=== PATIENT | male | born 1955 | race Caucasian/White ===

== ENCOUNTER 2017-12-29 16:46 | Emergency (ER) | payer BC ==
[2017-12-29 17:05] VITALS: BP 131/82
--- NOTE | 2017-12-29 18:11 | UC ---
Lula Bell Gabriel, scribed for Gen Villarreal MD on 12/29/17 at 1717 . Respiratory Complaint HPI - HPI Summary HPI Summary: This patient is a 62 year old M presenting to [facility] accompanied by his grandson with a chief complaint of a productive cough since a week ago. The patient rates the pain 0/10 in severity. Symptoms alleviated by nothing, pt has taken OTC medication with no relief. Patient reports nasal congestion and sinus pressure. Patient denies fever and ear pain. - History of Current Complaint Chief Complaint: UCRespiratory Stated Complaint: COUGH, AND CHEST CONGESTION Time Seen by Provider: 12/29/17 17:10 Hx Obtained From: Patient Onset/Duration: Still Present Timing: Constant Severity Initially: Mild Severity Currently: Moderate Pain Intensity: 0 Pain Scale Used: 0-10 Numeric Associated Signs And Symptoms: Positive: Nasal Congestion, Sinus Discomfort - Allergies/Home Medications Allergies/Adverse Reactions: Allergies Allergy/AdvReac Type Severity Reaction Status Date / Time Environmental Allergies Allergy Congestion Uncoded 12/29/17 17:05 PMH/Surg Hx/FS Hx/Imm Hx Other History Of: Negative For: HIV, Hepatitis B, Hepatitis C, Anticoagulant Therapy - Surgical History Surgical History: None Surgery Procedure, Year, and Place: LEFT WRIST ORIF AND THEN PLATE PLACEMENT. HERNIA REPAIR. TURP - Family History Known Family History: Negative: Diabetes, Seizure Disorder, Other - NO JOINT LAXITY - Social History Alcohol Use: None Substance Use Type: None Smoking Status (MU): Former Smoker When Did the Patient Quit Smoking/Using Tobacco: 25 yrs ago - Immunization History Most Recent Influenza Vaccination: 2017 Most Recent Pneumonia Vaccination: 2017 Review of Systems Constitutional: Negative - fever ENT: Nasal Discharge, Sinus Congestion, Sinus Pain/Tenderness Respiratory: Cough All Other Systems Reviewed And Are Negative: Yes Physical Exam Triage Information Reviewed: Yes Vital Signs: Initial Vital Signs Temp 98.1 F 12/29/17 17:02 Pulse 92 12/29/17 17:02 Resp 20 12/29/17 17:02 BP 131/82 12/29/17 17:02 Pulse Ox 96 12/29/17 17:02 Vital Signs Reviewed: Yes - Additional Comments General: well-appearing, no pain distress Skin: warm, color reflects adequate perfusion, dry Head: normal Eyes: EOMI, JOSE ENT: rhinorrhea Neck: supple, nontender Respiratory: CTA, breath sounds present Cardiovascular: RRR Abdomen: soft, nontender Bowel: present Musculoskeletal: normal, strength/ROM intact Neurological: normal, sensory/motor intact, A&O x3 UC Diagnostic Evaluation - Laboratory O2 Sat by Pulse Oximetry: 96 Respiratory Course/Dx - Course Course Of Treatment: BP noted and advised to follow up with PCP. SX 7-10 DAYS. - Differential Dx/Diagnosis Provider Diagnoses: SINUSITIS. elevated blood pressure without a history of HTN Discharge - Discharge Plan Condition: Stable Disposition: HOME Prescriptions: Amoxicillin/Clavulanate TAB* [Augmentin TAB 875*] 875 mg PO BID #20 tab Patient Education Materials: Sinusitis (ED) Referrals: Reina Bermudez MD [Primary Care Provider] - Additional Instructions: FOLLOW UP WITH YOUR DOCTOR. GET RECHECKED FOR ANY WORSENING OF YOUR CONDITION OR QUESTIONS OR CONCERNS. Your blood pressure was elevated during today's visit. Please follow up with your primary care provider in 1-2 weeks The documentation as recorded by the Lula smart Gabriel accurately reflects the service I personally performed and the decisions made by me, Gen Villarreal MD.
== END 2017-12-29 17:34 | disposition home or self-care (01) ==
LOC: UCEAST 16:46
DX: J32.9 Chronic sinusitis, unspecified (principal); R03.0 Elevated blood-pressure reading, without diagnosis of hypertension; Z87.891 Personal history of nicotine dependence
CPT/HCPCS: 99212; G0463

== ENCOUNTER 2018-03-08 11:59 | Emergency (ER) | payer BC ==
[2018-03-08 12:08] VITALS: BP 146/71
--- NOTE | 2018-03-08 12:24 | UC ---
Respiratory Complaint HPI - HPI Summary HPI Summary: pt started with fatigue 5 days ago, over next few days has developed bad cough and today he has been coughing up foul tasting green phlegm tried OTC cough/cold med with little relief - History of Current Complaint Chief Complaint: UCRespiratory Stated Complaint: CHEST CONGESTION Time Seen by Provider: 03/08/18 12:15 Hx Obtained From: Patient Onset/Duration: Gradual Onset Severity Initially: Mild Severity Currently: Moderate Pain Intensity: 5 Character: Cough: Productive Aggravating Factors: Nothing Alleviating Factors: Nothing Associated Signs And Symptoms: Positive: Nasal Congestion. Negative: Dyspnea, Fever, Wheezing, Hemoptysis - Allergies/Home Medications Allergies/Adverse Reactions: Allergies Allergy/AdvReac Type Severity Reaction Status Date / Time Environmental Allergies Allergy Congestion Uncoded 03/08/18 12:08 PMH/Surg Hx/FS Hx/Imm Hx Previously Healthy: Yes Endocrine History: Diabetes, Dyslipidemia Cardiovascular History: Hypertension GI/ History: Gastroesophageal Reflux Psychological History: Depression Other History Of: Negative For: HIV, Hepatitis B, Hepatitis C, Anticoagulant Therapy - Surgical History Surgical History: None Surgery Procedure, Year, and Place: LEFT WRIST ORIF AND THEN PLATE PLACEMENT. HERNIA REPAIR. TURP - Family History Known Family History: Positive: None Negative: Diabetes, Seizure Disorder, Other - NO JOINT LAXITY - Social History Occupation: Employed Full-time - computer office Lives: With Family Alcohol Use: None Substance Use Type: None Smoking Status (MU): Former Smoker When Did the Patient Quit Smoking/Using Tobacco: 25 yrs ago - Immunization History Most Recent Influenza Vaccination: 2017 Most Recent Pneumonia Vaccination: 2017 Review of Systems Constitutional: Fatigue Skin: Negative ENT: Nasal Discharge, Sinus Congestion Respiratory: Cough Cardiovascular: Negative Gastrointestinal: Negative Psychological: Negative All Other Systems Reviewed And Are Negative: Yes Physical Exam Triage Information Reviewed: Yes Appearance: Well-Appearing, Well-Nourished, Obese Vital Signs: Initial Vital Signs Temp 98.3 F 03/08/18 12:03 Pulse 91 03/08/18 12:03 Resp 20 03/08/18 12:03 BP 146/71 03/08/18 12:03 Pulse Ox 98 03/08/18 12:03 Vital Signs Reviewed: Yes Eyes: Positive: Conjunctiva Clear ENT: Positive: Pharynx normal, Nasal congestion. Negative: Sinus tenderness Neck exam: Normal Neck: Positive: Supple, Nontender, No Lymphadenopathy Respiratory: Positive: No respiratory distress, Rhonchi - l upper lung field Cardiovascular Exam: Normal Cardiovascular: Positive: RRR Musculoskeletal Exam: Normal Neurological Exam: Normal Neurological: Positive: Alert Psychological Exam: Normal Skin Exam: Normal Diagnostic Evaluation - Laboratory O2 Sat by Pulse Oximetry: 98 Respiratory Course/Dx - Differential Dx/Diagnosis Differential Diagnosis/HQI/PQRI: Bronchitis, Influenza, Lower Resp Infection, Sinusitis Provider Diagnoses: acute bronchitis Discharge - Sign-Out/Discharge Documenting (check all that apply): Discharge/Admit/Transfer - Discharge Plan Condition: Good Disposition: HOME Prescriptions: Azithromyxin BRYAN (NF) [Z-Bryan (Zithromax) 250 mg tabs #6] 2 tab PO .TODAY, THEN 1 DAILY #6 tab Patient Education Materials: Acute Bronchitis (ED) Referrals: Reina Bermudez MD [Primary Care Provider] - 3 Days (If no better) Additional Instructions: drink plenty of fluids use over the counter cold and cough medication as directed start zithromax and take as prescribed - Billing Disposition and Condition Condition: GOOD Disposition: HOME
== END 2018-03-08 13:06 | disposition home or self-care (01) ==
LOC: UCEAST 11:59
DX: J20.9 Acute bronchitis, unspecified (principal); E11.9 Type 2 diabetes mellitus without complications; Z79.84 Long term (current) use of oral hypoglycemic drugs; E78.5 Hyperlipidemia, unspecified; I10 Essential (primary) hypertension; K21.9 Gastro-esophageal reflux disease without esophagitis; F32.9 Major depressive disorder, single episode, unspecified; Z87.891 Personal history of nicotine dependence
CPT/HCPCS: 99212; G0463

== ENCOUNTER 2018-03-19 09:19 | Emergency (ER) | payer MEDICARE, BC, OTHER ==
[2018-03-19 09:32] VITALS: BP 140/74
--- NOTE | 2018-03-19 09:54 | RAD ---
INDICATION: Right hand injury COMPARISON: None TECHNIQUE: AP, lateral, and oblique views were obtained. FINDINGS: There are no acute bony findings. There is old deformity of the fifth metacarpal consistent with remote fracture. The carpals articulate normally. There is soft tissue swelling about the ulnar aspect of the wrist. IMPRESSION: SOFT TISSUE SWELLING. NO ACUTE FRACTURE.
--- NOTE | 2018-03-19 09:59 | RAD ---
INDICATION: Right wrist injury COMPARISON: None TECHNIQUE: AP, lateral, and oblique views were obtained. FINDINGS: There is no acute fracture or dislocation. There is soft tissue swelling along the ulnar aspect of the wrist. IMPRESSION: SOFT TISSUE SWELLING. NO ACUTE FRACTURE
--- NOTE | 2018-03-19 15:36 | UC ---
Poli Bell Nikita, scribed for Epifanio Machado MD on 03/19/18 at 0926 . Hand/Wrist HPI - HPI Summary HPI Summary: This patient is a 63 year old M presenting to [facility] with a chief complaint of R wrist pain since earlier today. The patient was filling up a bird feeder when he got off balance and smacked his hand against something and has been having pain since. The patient rates the pain 4/10 in severity. Symptoms aggravated by nothing. Symptoms alleviated by nothing. - History Of Current Complaint Stated Complaint: WRIST INJURY Time Seen by Provider: 03/19/18 09:22 Hx Obtained From: Patient Onset/Duration: Sudden Onset, Lasting Hours, Still Present Severity Initially: Mild Severity Currently: Mild Pain Intensity: 4 Pain Scale Used: 0-10 Numeric Aggravating Factor(s): Other - nothing Alleviating Factor(s): Nothing - Allergies/Home Medications Allergies/Adverse Reactions: Allergies Allergy/AdvReac Type Severity Reaction Status Date / Time Environmental Allergies Allergy Congestion Uncoded 03/19/18 09:29 PMH/Surg Hx/FS Hx/Imm Hx Endocrine History: Diabetes Cardiovascular History: Other Other Cardiovascular History: No CAD, HTN Respiratory History: Asthma, Pneumonia GI/ History: Gastroesophageal Reflux Psychological History: Anxiety, Depression Other History Of: Negative For: HIV, Hepatitis B, Hepatitis C, Anticoagulant Therapy - Surgical History Surgical History: None Surgery Procedure, Year, and Place: LEFT WRIST ORIF AND THEN PLATE PLACEMENT. HERNIA REPAIR. TURP - Family History Known Family History: Negative: Diabetes, Seizure Disorder, Other - NO JOINT LAXITY - Social History Alcohol Use: None Substance Use Type: None Smoking Status (MU): Former Smoker When Did the Patient Quit Smoking/Using Tobacco: 25 yrs ago - Immunization History Most Recent Influenza Vaccination: 2017 Most Recent Pneumonia Vaccination: 2017 Review of Systems Constitutional: Other - denies fever Musculoskeletal: Other: - R wrist pain All Other Systems Reviewed And Are Negative: Yes Physical Exam - Summary Physical Exam Summary: VITAL SIGNS: Reviewed. GENERAL: ~Patient is a well-developed and nourished MALE who is lying comfortable in the stretcher. ~Patient is not in any acute respiratory distress. HEAD AND FACE: Normocephalic EYES: PERRLA, EOMI x 2. EARS: Hearing grossly intact. MOUTH: Oropharynx within normal limits. NECK: Supple, trachea is midline, no adenopathy, no JVD, no carotid bruit. CHEST: Symmetric, no tenderness at palpation LUNGS: Clear to auscultation bilaterally. No wheezing or crackles. CVS: Regular rate and rhythm, S1 and S2 present, no murmurs or gallops appreciated. ABDOMEN: Soft, non-tender. Bowel sounds are normal. No abdominal abnormal pulsations. EXTREMITIES: Full ROM in all major joints, no edema, no cyanosis or clubbing. Swelling on lateral aspect of R wrist and is tender at palpation. NEURO: Alert and oriented x 3. No acute neurological deficits. Speech is normal and follows commands. SKIN: Dry and warm Triage Information Reviewed: Yes Vital Signs Reviewed: Yes Diagnostics - Radiology R hand XR Radiology Interpretation Completed By: Radiologist - SOFT TISSUE SWELLING. NO ACUTE FRACTURE. [facility] physician has reviewed this radiology report. R wrist XR Radiology Interpretation Completed By: Radiologist - SOFT TISSUE SWELLING. NO ACUTE FRACTURE. [facility] physician has reviewed this radiology report. Re-Evaluation - Re-Evaluation First Eval Re-Evaluation Time: 10:19 Comment: Discussed results and discharge plan with the patient. Hand/Wrist Course/Dx - Course Course Of Treatment: This patient is a 63 year old M presenting to [facility] with a chief complaint of R wrist pain since earlier today. R hand XR reveals SOFT TISSUE SWELLING. NO ACUTE FRACTURE. R wrist XR reveals SOFT TISSUE SWELLING. NO ACUTE FRACTURE. The pt is hemodynamically stable, alert and oriented x3. I discussed all the findings and test results with the patient. The patient will be discharged with instructions to follow up with their PCP. Patient was instructed to return to the urgent care or go to ER immediately if any of the symptoms return or worsens. Plan of care was discussed with the patient, and patient understands and agrees. All questions were answered to patient satisfaction. There were no further complaints or concerns. - Differential Dx/Diagnosis Provider Diagnoses: wrist pain Discharge - Sign-Out/Discharge Documenting (check all that apply): Discharge/Admit/Transfer - Discharge Plan Condition: Stable Disposition: HOME Patient Education Materials: Wrist Injury (ED), Contusion in Adults (ED), Arthralgia (ED) Referrals: Reina Bermudez MD [Primary Care Provider] - Additional Instructions: Take medications as instructed Increase your fluid intake Return to the if symptoms worsen The documentation as recorded by the scribe, Poli,Chandra accurately reflects the service I personally performed and the decisions made by me, Epifanio Machado MD.
== END 2018-03-19 10:25 | disposition home or self-care (01) ==
LOC: UCEAST 09:19
DX: M25.531 Pain in right wrist (principal); E11.9 Type 2 diabetes mellitus without complications; Z79.84 Long term (current) use of oral hypoglycemic drugs; J45.909 Unspecified asthma, uncomplicated; K21.9 Gastro-esophageal reflux disease without esophagitis; F41.9 Anxiety disorder, unspecified; F32.9 Major depressive disorder, single episode, unspecified; Z87.891 Personal history of nicotine dependence
CPT/HCPCS: 99211; G0463

== ENCOUNTER 2018-11-01 20:36 | Emergency (ER) | payer MEDICARE, BC ==
[2018-11-01 20:43] VITALS: BP 140/82
--- NOTE | 2018-11-01 20:58 | UC ---
Respiratory Complaint HPI - HPI Summary HPI Summary: cough sore throat and ear congestion for a few days-no days--no fevers- - History of Current Complaint Chief Complaint: UCRespiratory Stated Complaint: SORE THROAT, AND EAR ACHE Time Seen by Provider: 11/01/18 20:56 Hx Obtained From: Patient Onset/Duration: Sudden Onset, Lasting Days - 3 Timing: Constant Pain Intensity: 4 Pain Scale Used: 0-10 Numeric Character: Cough: Nonproductive Aggravating Factors: Nothing Alleviating Factors: Nothing Associated Signs And Symptoms: Positive: URI, Nasal Congestion - Allergies/Home Medications Allergies/Adverse Reactions: Allergies Allergy/AdvReac Type Severity Reaction Status Date / Time Environmental Allergies Allergy Congestion Uncoded 11/01/18 20:43 PMH/Surg Hx/FS Hx/Imm Hx Previously Healthy: No Endocrine History: Dyslipidemia Respiratory History: Asthma GI/ History: Gastroesophageal Reflux Psychological History: Anxiety Other History Of: Negative For: HIV, Hepatitis B, Hepatitis C, Anticoagulant Therapy - Surgical History Surgical History: Yes Surgery Procedure, Year, and Place: LEFT WRIST ORIF AND THEN PLATE PLACEMENT. HERNIA REPAIR. TURP - Family History Known Family History: Positive: None Negative: Diabetes, Seizure Disorder, Other - NO JOINT LAXITY - Social History Occupation: Employed Full-time Lives: With Family Alcohol Use: None Substance Use Type: None Smoking Status (MU): Former Smoker When Did the Patient Quit Smoking/Using Tobacco: 25 yrs ago - Immunization History Most Recent Influenza Vaccination: 2016 Most Recent Pneumonia Vaccination: 2017 Review of Systems All Other Systems Reviewed And Are Negative: Yes Constitutional: Positive: Negative Skin: Positive: Negative Eyes: Positive: Negative ENT: Positive: Sore Throat, Ear Ache, Sinus Congestion Respiratory: Positive: Cough Cardiovascular: Positive: Negative Gastrointestinal: Positive: Negative Genitourinary: Positive: Negative Motor: Positive: Negative Neurovascular: Positive: Negative Musculoskeletal: Positive: Negative Neurological: Positive: Negative Psychological: Positive: Negative Is Patient Immunocompromised?: No Physical Exam Triage Information Reviewed: Yes Appearance: Well-Appearing, No Pain Distress, Well-Nourished Vital Signs: Initial Vital Signs Temp 98.2 F 11/01/18 20:41 Pulse 92 11/01/18 20:41 Resp 18 11/01/18 20:41 BP 140/82 11/01/18 20:41 Pulse Ox 98 11/01/18 20:41 Vital Signs Reviewed: Yes Eye Exam: Normal Eyes: Positive: Conjunctiva Clear ENT Exam: Normal ENT: Positive: Normal ENT inspection, Hearing grossly normal, Pharynx normal, Nasal congestion, Sinus tenderness, Uvula midline. Negative: TMs normal, Tonsillar swelling, Tonsillar exudate, Trismus, Muffled voice, Hoarse voice, Dental tenderness Dental Exam: Normal Neck exam: Normal Neck: Positive: Supple, Nontender, No Lymphadenopathy Respiratory Exam: Normal Respiratory: Positive: Chest non-tender, Lungs clear, Normal breath sounds, No respiratory distress, No accessory muscle use Cardiovascular Exam: Normal Cardiovascular: Positive: RRR, No Murmur, Pulses Normal, Brisk Capillary Refill Musculoskeletal Exam: Normal Musculoskeletal: Positive: Strength Intact, ROM Intact, No Edema Neurological Exam: Normal Neurological: Positive: Alert, Muscle Tone Normal Psychological Exam: Normal Skin Exam: Normal UC Diagnostic Evaluation - Laboratory O2 Sat by Pulse Oximetry: 98 Diagnostic Studies Comment: rapid strep (-) Respiratory Course/Dx - Course Course Of Treatment: tylenol, ibuprofen increase fluids follow with pcp - Differential Dx/Diagnosis Provider Diagnosis: Viral illness, Sore throat (viral) Discharge - Sign-Out/Discharge Documenting (check all that apply): Patient Departure All imaging exams completed and their final reports reviewed: No Studies - Discharge Plan Condition: Stable Disposition: HOME Patient Education Materials: Pharyngitis (ED), Viral Syndrome (ED), Hypertension (ED) Referrals: Reina Bermudez MD [Primary Care Provider] - 2 Weeks - Billing Disposition and Condition Condition: STABLE Disposition: Home
== END 2018-11-01 21:35 | disposition home or self-care (01) ==
LOC: UCEAST 20:36
DX: B34.9 Viral infection, unspecified (principal); J02.9 Acute pharyngitis, unspecified; Z87.891 Personal history of nicotine dependence
CPT/HCPCS: 87651; 99211; G0463

== ENCOUNTER 2018-11-13 15:07 | Emergency (ER) | payer MEDICARE, BC ==
[2018-11-13 15:27] VITALS: BP 142/81
--- NOTE | 2018-11-13 15:49 | UC ---
Throat Pain/Nasal Dong HPI - HPI Summary HPI Summary: 63 yo male presents with sinus pain/pressure/congestion for the last 1.5 weeks. He tells me that he has a history of chronic sinus infections and gets allergy shots for these - has not had a sinus infection in a long time. His symptoms began 1.5 weeks ago and he has been taking OTC cold medicine, nasal sprays, and mucinex with no relief. Denies fever, chills, sore throat, cough. - History of Current Complaint Chief Complaint: UCRespiratory Stated Complaint: CONGESTED,COUGH Time Seen by Provider: 11/13/18 15:49 Hx Obtained From: Patient Onset/Duration: Gradual Onset Pain Intensity: 0 - Allergies/Home Medications Allergies/Adverse Reactions: Allergies Allergy/AdvReac Type Severity Reaction Status Date / Time Environmental Allergies Allergy Congestion Uncoded 11/13/18 15:26 Home Medications: Home Medications Mometasone 110 MCG MDI * [Asmanex 110 MCG MDI *] 11/13/18 [History] PMH/Surg Hx/FS Hx/Imm Hx Respiratory History: Asthma Other History Of: Negative For: HIV, Hepatitis B, Hepatitis C, Anticoagulant Therapy - Surgical History Surgical History: Yes Surgery Procedure, Year, and Place: LEFT WRIST ORIF AND THEN PLATE PLACEMENT. HERNIA REPAIR. TURP - Family History Known Family History: Positive: None Negative: Diabetes, Seizure Disorder, Other - NO JOINT LAXITY - Social History Lives: With Family Alcohol Use: None Substance Use Type: None Smoking Status (MU): Former Smoker When Did the Patient Quit Smoking/Using Tobacco: 25 yrs ago - Immunization History Most Recent Influenza Vaccination: 2017 Most Recent Pneumonia Vaccination: 2017 Review of Systems All Other Systems Reviewed And Are Negative: Yes Constitutional: Positive: Negative Skin: Positive: Negative Eyes: Positive: Negative ENT: Positive: Nasal Discharge, Sinus Congestion, Sinus Pain/Tenderness Respiratory: Positive: Negative Cardiovascular: Positive: Negative Neurological: Positive: Negative Psychological: Positive: Negative Physical Exam - Summary Physical Exam Summary: GENERAL: NAD. WDWN. No pain distress. SKIN: No rashes, sores, lesions, or open wounds. HEENT: Head: AT/NC Eyes: EOM intact. Conjunctiva clear without inflammation or discharge. Ears: Hearing grossly normal. TMs intact, no bulging, erythema, or edema. Nose: Nasal mucosa mildly swollen. No erythema and without discharge. TTP maxillary and frontal sinus. Positive post nasal drip Throat: Posterior oropharynx without exudates, erythema, or tonsillar enlargement. Uvula midline. NECK: Supple. Nontender. No lymphadenopathy. CHEST: CTAB. No r/r/w. No accessory muscle use. Breathing comfortably and in no distress. CV: RRR. Without m/r/g. Pulses intact. NEURO: Alert. PSYCH: Age appropriate behavior. Triage Information Reviewed: Yes Vital Signs: Initial Vital Signs Temp 97.1 F 11/13/18 15:23 Pulse 94 11/13/18 15:23 Resp 16 11/13/18 15:23 BP 142/81 11/13/18 15:23 Pulse Ox 96 11/13/18 15:23 Vital Signs Reviewed: Yes Throat Pain/Nasal Course/Dx - Course Course Of Treatment: Sinusitis - pt says zpak works well for him - Differential Dx/Diagnosis Provider Diagnosis: Sinusitis Discharge - Sign-Out/Discharge Documenting (check all that apply): Patient Departure All imaging exams completed and their final reports reviewed: No Studies - Discharge Plan Condition: Stable Disposition: HOME Prescriptions: Azithromycin TAB* [Zithromax TAB (Z-BRYAN) 250 mg #6 tabs] 2 tab PO .TODAY, THEN 1 DAILY #1 bryan Patient Education Materials: Sinusitis (ED) Referrals: Reina Bermudez MD [Primary Care Provider] - Additional Instructions: If you develop a fever, shortness of breath, chest pain, new or worsening symptoms - please call your PCP or go to the ED. Your blood pressure was high at todays visit. Please see your primary provider within 4 weeks for recheck and re-evaluation. - Billing Disposition and Condition Condition: STABLE Disposition: Home
== END 2018-11-13 16:01 | disposition home or self-care (01) ==
LOC: UCEAST 15:07
DX: J32.9 Chronic sinusitis, unspecified (principal); J45.909 Unspecified asthma, uncomplicated; Z91.09 Other allergy status, other than to drugs and biological substances; Z87.891 Personal history of nicotine dependence
CPT/HCPCS: 99212; G0463

== ENCOUNTER 2019-05-21 07:47 | Day surgery (SDC) | payer MEDICARE, BC ==
--- NOTE | 2019-05-07 07:36 | HP ---
PREOPERATIVE HISTORY AND PHYSICAL: DATE OF SURGERY/ADMISSION: 05/21/19 DATE OF OFFICE VISIT/ENCOUNTER: 05/05/19 ATTENDING SURGEON: Jenna Segovia MD * (DICTATED BY NICOLE AMBROSE) PROCEDURE: Right ring finger trigger finger release. HISTORY OF PRESENT ILLNESS: This is a 64-year-old male who has had triggering in his right ring finger for several months. He has received 2 cortisone injections over time, but the problem recurs. He would like a more permanent solution to the triggering at this time and has consented to proceed with surgical intervention. PAST MEDICAL HISTORY: 1. Diabetes. 2. GERD. 3. Depression/anxiety. 4. Hypertension. 5. Seasonal allergies. PAST SURGICAL HISTORY: 1. Hernia repair. 2. Left arm ORIF. 3. TURP. CURRENT MEDICATIONS: 1. Asmanex. 2. Aspirin 81 mg daily. 3. Atorvastatin calcium 20 mg daily. 4. Esomeprazole magnesium 40 mg daily. 5. Fluoxetine HCl 20 mg daily. 6. Levocetirizine dihydrochloride 5 mg daily. 7. Lisinopril 10 mg daily. 8. Metformin HCl ER 500 mg daily. 9. Multivitamin daily. ALLERGIES: No known drug allergies. FAMILY MEDICAL HISTORY: Noncontributory. 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 He is a former smoker, he quit about 30 years ago. Prior to that, he smoked for 20 years a pack per day. He denies recreational drug use and does not drink alcohol. REVIEW OF SYSTEMS: Negative for general, cephalic, cardiovascular, respiratory , GI, , other musculoskeletal, integumentary, endocrine, neurologic and hematologic symptoms. Infectious Disease: Negative for MRSA, hepatitis C, HIV. PHYSICAL EXAMINATION GENERAL: Well-developed, well-nourished 64-year-old male in no acute distress. VITAL SIGNS: Height 6 feet tall, weight 272 pounds. pulse rate 76, blood pressure 132/64. HEENT: Normocephalic, atraumatic. Pupils are equal, round, and reactive to light and accommodation. Extraocular movements are intact. Throat is clear. NECK: Supple. No palpable lymph nodes. PULMONARY: Lungs are clear to auscultation bilaterally. No wheezes, rales, or rhonchi. CARDIOVASCULAR: Regular rate and rhythm. S1, S2. No murmurs, rubs, or gallops. No edema. ABDOMEN: Positive bowel sounds, soft, nontender. NEUROLOGICAL: Alert and oriented x3. Cranial nerves II through XII are intact. Sensation is intact to light touch. MUSCULOSKELETAL: On inspection of his right hand, there is no visible swelling. Skin is intact. He has tenderness to palpation at the A1 liane of the right ring finger and difficulty fully flexing the finger. Neurovascular function is intact. IMPRESSION: Right ring trigger finger. PLAN: The patient is scheduled to undergo a right ring finger trigger finger release with Dr. Segovia on 05/21/19. He will return to the office 10 days postop for followup and suture removal. A prescription for Tylenol No. 3 was e- scribed to the patient's pharmacy for postoperative pain management. NICOLE AMBROSE [id number] #: [id number] JAVON
[~2019-05-21 07:47] MED LIST: Buffered Lidocaine 1% SYRIN* 1 ML/SYRINGE INTRADERM ONE; Lactated Ringers 1000 ML Bag* 1,000 ML IV SCH; Lidocaine 1% INJ* 10 MG/ML 30 ML SDV ONE
[2019-05-21] MEDS ORDERED: Naloxone* 0.4 MG/ML 1 ML VIAL IV PRN (08:58)
[2019-05-21] MEDS ORDERED: Propofol* 10 MG/ML 20 ML BTL ONE (09:00)
[2019-05-21] MEDS ORDERED: Lidocaine 2% PF * 5 ML VIAL ONE (09:00)
[2019-05-21 10:14] VITALS: BP 131/82
--- NOTE | 2019-05-21 10:41 | OP ---
DATE OF OPERATION: 05/21/19 [facility] DATE OF : 51 SURGEON: Jenna Segovia MD. PARKING ASSISTANT: NICOLE Ackerman. ANESTHESIA: Local MAC. PRE-OP DIAGNOSIS: Right ring finger trigger finger. POST-OP DIAGNOSIS: Right ring finger trigger finger. OPERATIVE PROCEDURE: Right ring finger trigger release. ESTIMATED BLOOD LOSS: Zero. TOURNIQUET TIME: About 10 minutes. INDICATION FOR PROCEDURE: Blaine is an 64-year-old male who has triggering and locking of his right ring finger. He presents for trigger finger release. DESCRIPTION OF PROCEDURE: The patient was brought to the operating room and was given a sedation anesthetic and local anesthetic with 1% plain lidocaine in the palm of his right hand. The skin of his right hand and forearm was prepped and draped in the usual sterile fashion. The hand and forearm were exsanguinated and the tourniquet elevated to 250 mmHg. A transverse incision was made centered over the right ring finger A1 liane. We dissected through the subcutaneous tissue. The digital neurovascular bundles were retracted by the surgical garment fitter, Vaishali Jimenez. The A1 liane was incised longitudinally completely releasing the flexion tendons, which were in good condition. The wound was irrigated and the skin edges were reapproximated with 4-0 nylon suture. The wound was dressed with Xeroform, 4x4, Webril and an Clemente wrap. The patient tolerated the procedure well and was brought to the recovery room in good condition. [id number]/CPS #: [id number] MTDD
== END 2019-05-21 09:58 | disposition home or self-care (01) ==
LOC: OREAST 07:47
PROVIDERS: ATTEND Orthopaedic Surgery
DX: M65.341 Trigger finger, right ring finger (principal); E11.9 Type 2 diabetes mellitus without complications; Z79.84 Long term (current) use of oral hypoglycemic drugs; K21.9 Gastro-esophageal reflux disease without esophagitis; F41.8 Other specified anxiety disorders; I10 Essential (primary) hypertension; Z87.891 Personal history of nicotine dependence; J45.909 Unspecified asthma, uncomplicated
CPT/HCPCS: J2704

== ENCOUNTER 2019-12-04 16:11 | Emergency (ER) | payer MEDICARE, BC ==
--- OUTSIDE RECORDS SUMMARY | 2019-12-04 16:17 | XMS REPORT | Summary of Care ---
:1955 Author Organization [facility] Address [address] [facility] [place] [address] Care Team Providers Name Role Phone Reina Bermudez MD Primary Care Provider Venancio Wheat Unavailable Concha Gracia MD Unavailable Danilo Caro MD Unavailable Jagdeep Baltazar MD Primary Journeyman Lineman/Sample Driller Reason for Visit Reason Comments Other pt presents for painful left middle finger. Is red around tip. Noticed about friday. Encounter Details Date Type Department Care Team Description 11/17/2019 Office Visit [facility] Jaison Michael MD Paronychia of finger, Practice [address] left (Primary Dx) [address] [place] [address] [place] [address] [phone] Allergies No Known Allergiesdocumented as of this encounter (statuses as of 11/17/2019) Medications Medication Sig Dispensed Refills Start Date End Date Status Aspirin 81 MG Oral Tab Take 1 Tab by 0 Active mouth DAILY. Levocetirizine Take 1 Tab by 0 Active Dihydrochloride (XYZAL) mouth DAILY. 5 MG Oral Tab albuterol HFA (VENTOLIN Take 2 Puffs by 1 Inhaler 5 04/10/2017 Active HFA) 108 (90 BASE) inhalation EVERY MCG/ACT Inhalation Aero FOUR HOURS Soln NEEDED (sob). Lancets Does not apply by Does not apply 100 Each 5 04/25/2017 Active MiscIndications: route Diabetes mellitus DIRECTED. Insulin without complication dependent (HCC) diabetes. Brand: insurance preferred Glucose Blood In Vitro 1 Strip by In 50 Strip 11 04/25/2017 Active StripIndications: Vitro route Diabetes mellitus DAILY. contolled without complication non-insulin (HCC) dependent diabetes ASMANEX 60 METERED inhale 2 puffs by 1 Each 5 01/28/2019 Active DOSES 220 MCG/INH mouth once daily Inhalation AEROSOL POWDER, BREATH ACTIVATED esomeprazole magnesium take 1 capsule by 90 Cap 1 05/11/2019 Active (NEXIUM) 40 MG Oral mouth once daily CAPSULE DELAYED RELEASEIndications: Gastroesophageal reflux disease without esophagitis glimepiride (AMARYL) 2 Take 1 Tab by 30 Tab 5 07/09/2019 Active MG Oral TabIndications: mouth EVERY Diabetes mellitus MORNING. without complication (HCC) lisinopril (PRINIVIL, take 1 tablet by 90 Tab 1 08/03/2019 Active ZESTRIL) 10 MG Oral mouth once daily TabIndications: Essential hypertension atorvastatin (LIPITOR) take 1 tablet by 90 Tab 1 08/24/2019 Active 20 MG Oral mouth once daily TabIndications: Mixed hyperlipidemia metFORMIN HCL 750 MG TAKE 2 TABLETS BY 180 Tab 0 09/21/2019 Active Oral TABLET SR 24 MOUTH ONCE DAILY HRIndications: Diabetes mellitus without complication (HCC) fluoxetine (PROZAC) 20 TAKE 1 CAPSULE BY 90 Cap 0 09/21/2019 Active MG Oral CapIndications: MOUTH ONCE DAILY Generalized anxiety disorder doxycycline Take 100 mg by 20 Tab 0 11/17/2019 Active (VIBRAMYCIN) 100 MG mouth TWICE Oral Tab DAILY. 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 Set realistic goal of 1# wt reduction /week set 10 week goals. Chronic rhinitis 04/09/2012 GERD (gastroesophageal reflux disease) 04/09/2012 Generalized anxiety disorder 04/09/2012 documented as of this encounter (statuses as of 11/17/2019) Immunizations Name Administration Dates Next Due Influenza (IM) Preservative Free 09/04/2017, 08/20/2015, 07/25/2014 Influenza Vaccine 65 Yrs + 11/05/2019 Influenza Vaccine High Dose 08/03/2018 Influenza Vaccine Whole 08/05/2016, 08/29/2013 PNEUMOCOCCAL POLYSACCHARIDE VACCINE 09/04/2016 Pneumococcal Conjugate Vaccine 09/04/2017 TETANUS & DIPHTHERIA TOXOID (OVER 7 YRS) 11/10/2011 ZOSTER (SHINGRIX) VACCINE 09/30/2019 ZOSTER (ZOSTAVAX) VACCINE 10/07/2014 documented as of this encounter Social History Tobacco Use Types Packs/Day Years Used Date Former Smoker Cigarettes 1.5 25 Quit: 1993 Smokeless Tobacco: Never Used Comments: Alcohol Use Drinks/Week oz/Week Comments Yes rare Sex Assigned at Date Recorded Not on file Job Start Date Occupation Industry Not on file Not on file Not on file Travel History Travel Start Travel End No recent travel history available. documented as of this encounter Last Filed Vital Signs Vital Sign Reading Time Taken Comments Blood Pressure 112/68 11/17/2019 1:08 PM EST Pulse 86 11/17/2019 1:08 PM EST Temperature 37.1 11/17/2019 1:08 PM C (98.8 EST F) Respiratory Rate - - Oxygen Saturation 96% 11/17/2019 1:08 PM EST Inhaled Oxygen Concentration - - Weight 125.6 kg (276 lb 14.4 oz) 11/17/2019 1:08 PM EST Height 177.8 cm (5' 10") 11/17/2019 1:08 PM EST Body Mass Index 39.73 11/17/2019 1:08 PM EST documented in this encounter Progress Notes Jaison Michael MD - 11/17/2019 1:00 PM EST PATIENT: Blaine Daniels : 1955 DATE OF SERVICE: 11/17/2019 CHIEF COMPLAINT: Chief Complaint Patient presents with Other pt presents for painful left middle finger. Is red around tip. Noticed about friday. Subjective HISTORY OF PRESENT ILLNESS: Blaine Daniels is a 64-y.o. male. Right handed with left 3rd finger with redness , pain, but no purulence x 3 days. No injury but bites nails . Has had something similar in the past a few times but self resolves in a couple days without this much pain . Past Medical History: Diagnosis Date Adenomatous colon polyp 07/2017 Anxiety Asthma, moderate persistent Dr Wheat BPH sees Dr. Caro. Chronic rhinitis 04/09/2012 Colles' fracture L repaired 2003 Depression Diabetes mellitus without complication (HCC) 04/25/2017 Dysplastic nevi Essential hypertension 04/25/2017 GERD (gastroesophageal reflux disease) Hypersomnia 07/31/[address] Wheat: Bilateral lung nodules. Secondary to old granulomatous disease. Problems with hearing decreased right ear Reflux esophagitis Vocal cord polyp removed 1999 Family History Problem Relation Age of Onset Alcohol/Drug Father etoh Heart Father No Known Problems Sister No Known Problems Sister No Known Problems Brother No Known Problems Child No Known Problems Child Alcohol/Drug Mother etoh Pulmonary Mother COPD Cancer Paternal Grandfather Hypertension Paternal Grandfather No Known Problems Grandchild No Known Problems Grandchild Current Outpatient Medications Medication Sig albuterol HFA (VENTOLIN HFA) 108 (90 BASE) MCG/ACT Inhalation Aero Soln Take 2 Puffs by inhalation EVERY FOUR HOURS NEEDED (sob). ASMANEX 60 METERED DOSES 220 MCG/INH Inhalation AEROSOL POWDER, BREATH ACTIVATED inhale 2 puffs by mouth once daily Aspirin 81 MG Oral Tab Take 1 Tab by mouth DAILY. atorvastatin (LIPITOR) 20 MG Oral Tab take 1 tablet by mouth once daily esomeprazole magnesium (NEXIUM) 40 MG Oral CAPSULE DELAYED RELEASE take 1 capsule by mouth once daily fluoxetine (PROZAC) 20 MG Oral Cap TAKE 1 CAPSULE BY MOUTH ONCE DAILY glimepiride (AMARYL) 2 MG Oral Tab Take 1 Tab by mouth EVERY MORNING. Glucose Blood In Vitro Strip 1 Strip by In Vitro route DAILY. contolled non-insulin dependentdiabetes Lancets Does not apply Misc by Does not apply route DIRECTED. Insulin dependent diabetes. Brand: insurance preferred Levocetirizine Dihydrochloride (XYZAL) 5 MG Oral Tab Take 1 Tab by mouth DAILY. lisinopril (PRINIVIL, ZESTRIL) 10 MG Oral Tab take 1 tablet by mouth once daily metFORMIN HCL 750 MG Oral TABLET SR 24 HR TAKE 2 TABLETS BY MOUTH ONCE DAILY No current facility-administered medications for this visit. No Known Allergies Social History Socioeconomic History Marital status: Spouse name: Not on file Number of children: Not on file Years of education: Not on file Highest education level: Not on file Occupational History Not on file Social Needs Financial resource strain: Not on file Food insecurity Worry: Not on file Inability: Not on file Transportation needs Medical: Not on file Non-medical: Not on file Tobacco Use Smoking status: Former Smoker Packs/day: 1.50 Years: 25.00 Pack years: 37.50 Types: Cigarettes Last attempt to quit: 1993 Years since quittin.0 Smokeless tobacco: Never Used Tobacco comment: Substance and Sexual Activity Alcohol use: Yes Comment: rare Drug use: No Sexual activity: Yes Partners: Female Lifestyle Physical activity Days per week: Not on file Minutes per session: Not on file Stress: Not on file Relationships Social connections Talks on phone: Not on file Gets together: Not on file Attends pentecostal service: Not on file Active member of club or organization: Not on file Attends meetings of clubs or organizations: Not on file Relationship status: Not on file Intimate partner violence Fear of current or ex partner: Not on file Emotionally abused: Not on file Physically abused: Not on file Forced sexual activity: Not on file Other Topics Concern Back Care Not Asked Bike Helmet Not Asked Blood Transfusions No Caffeine Concern Not Asked Exercise Yes Comment: walking ~1 mile q2days Hobby Hazards Not Asked International Travel Yes Comment: [facility] Service No Occupational Exposure No Seat Belt Yes Self-Exams Not Asked Sleep Concern No Special Diet Yes Comment: low fat Stress Concern No Weight Concern Yes Social History Narrative 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 3 cats. [employer] computer security REVIEW OF SYSTEMS: ROS Objective PHYSICAL EXAM: VITALS: BP 112/68 (BP Location: Left arm, Patient Position: Sitting) | Pulse 86 | Temp 98.8 F(37.1 C) | Ht 5' 10" (1.778 m) | Wt 276 lb 14.4 oz ( 125.6 kg) | SpO2 96% | BMI 39.73 kg/m Body mass index is 39.73 kg/m. Physical Exam Vitals signs reviewed. Constitutional: Appearance: He is not ill-appearing. Cardiovascular: Rate and Rhythm: Normal rate and regular rhythm. Pulmonary: Effort: Pulmonary effort is normal. Breath sounds: Normal breath sounds. Skin: Comments: Tip of 3rd digit is red swollen and tender. There is a small white are consistent withpurulence noted adjacent to the nail Psychiatric: Mood and Affect: Mood normal. ASSESSMENT / IMPRESSION: ICD-9-CM ICD-10-CM 1. Paronychia of finger, left 681.02 L03.012 INCISION AND DRAINAGE OF ABSCESS SIMPLE Plan Procedure Procedure explain including risks and benefits. Risk include infection and bleeding. Patient consent to the procedure. After time out Betadine placed. Small incision adjacent to the nail released small amount purulent material Clean and dress Give doxy Call if not better Author: Jaison Michael MD 11/17/2019 13:16 documented in this encounter Plan of Treatment Name Type Priority Associated Diagnoses Order Schedule INCISION AND DRAINAGE Procedures Routine Paronychia of finger, Ordered: 06/2020 OF ABSCESS SIMPLE left Health Maintenance Due Date Last Done Comments ZOSTER IMMUNIZATION SERIES 11/25/2019 09/30/2019, 10/07/2014 (3 of 3) FALL RISK ASSESSMENT 12/29/2019 12/29/2018, 12/29/2018 HEMOGLOBIN A1C 03/22/2020 09/22/2019, 07/02/2019, 03/30/2019, Additional history exists DEPRESSION SCREENING 04/07/2020 04/07/2019 FOOT EXAM 07/09/2020 07/09/2019, 07/09/2019, 07/09/2019, Additional history exists LIPID DISORDER SCREENING 09/22/2020 09/22/2019, 08/24/2019, 08/26/2018, Additional history exists Diabetic Eye Exam 04/25/2021 04/25/2019, 04/23/2019, 04/23/2019, Additional history exists PNEUMOCOCCAL 65+YRS (2 of 2 09/04/2021 09/04/2017, 09/04/2016 - PPSV23) DTaP/Tdap/Td Vaccines (2 - 11/10/2021 11/10/2011 Tdap) Colonoscopy 07/22/2022 07/22/2017, 01/15/2017 AAA SCREENING/SURVEILLANCE Completed 12/31/2018 INFLUENZA VACCINE Completed 11/05/2019, 08/03/2018, 09/04/2017, Additional history exists HEPATITIS A IMMUNIZATION Aged Out No longer eligible SERIES based on patient's age to complete this topic HPV IMMUNIZATION SERIES Aged Out No longer eligible based on patient's age to complete this topic MENINGOCOCCAL VACCINE IMM Aged Out No longer eligible based on patient's age to complete this topic documented as of this encounter Goals Goal Patient Goal Associated Recent Patient-Stated? Author Type Problems Progress Blood Pressure Blood 112/68 No Aidan, < 140/90 Pressure (11/17/2019 Reina Henderson, 1:08 PM EST) Note: This is an individualized treatment (blood pressure) goal for Blaine Daniels: Displayed above (on the left) is your goal for blood pressure control. Your most recent blood pressure is also shown above, on the right. You should try to achieve blood pressures that are lower than your goal listed above (on the left). Glycohemoglobin A1c < 7.0 Diabetes 6.8 (09/22/2019 8:27 No Reina Bermudez AM ESTPrakash Henderson MD Note: This is an individualized treatment (diabetes control, HgbA1C) goal for Blaine Daniels: Displayed above is your progress towards your HgbA1C goal. Your goal is shown above (on the left); your most recent HgbA1C is shown on the right. Note that lower numbers are better. Weight loss vs. 18 Lifestyle 0 (11/17/2019 1:08 PM No Reina Bermudez mo max (lbs) >= 10 EST) Note: This is an individualized lifestyle goal for Blaine Daniels: Your body mass index (BMI) is more than 30. You should lose weight. A reasonable starting goal is to lose 10 pounds. Displayed above is how many pounds you have lost thus far towards your 10 pound weight loss goal. Keep immunizations current Lifestyle No Reina Bermudez MD Note: This is an individualized lifestyle goal for lBaine Daniels: Please be sure to keep up-to-date on recommended immunizations. For example, this would include a yearly influenza vaccine. Immunization status can be seen by looking at the Health Maintenance sections of your e[facility], Plan of Care, and any After Visit Summaries. Take all prescribed medications as Self-management No Reina Bermudez MD directed Note: This is an individualized self-management goal for Blaine Daniels: Please take all prescribed medications as directed. 1. Do not skip doses. If you cannot afford your medications, talk with your doctor. 2. Use a pill reminder system such as a pill box if needed. Your pharmacist can help you with this. 3. Contact your Pharmacy 5 days before your medication runs out. If you cannot take your medications for any reasons, talk with your doctor. 4. Please bring all of your medication bottles and inhalers (or a list of all your medications/inhalers) with you to every visit. Potential barriers to meeting all of your care plan goals will continue to be addressed on an ongoing basis. documented as of this encounter Results Not on filedocumented in this encounter Visit Diagnoses Diagnosis Paronychia of finger, left documented in this encounter Insurance Payer Benefit Plan / Subscriber ID Effective Dates Phone Address Type Group MEDICARE MEDICARE PART A & xxxxxxxxxxx 2018-Present Medicare B [employer] xxxxxxxxxxxx 2014-Present [employer] Guarantor Name Account Type Relation to Date of Phone Billing Patient Address Blaine Daniels Personal/Family 1955 [address]) [address] [phone] [place], [place] (Work) [id number] documented as of this encounter Advance Directives Type Date Recorded Patient Email Deployment Specialist Explanation Advance Directives 08/01/2017 3:28 PM Health Care Proxy
[2019-12-04 16:38] VITALS: BP 132/81
--- NOTE | 2019-12-04 16:46 | UC ---
Throat Pain/Nasal Dong HPI - HPI Summary HPI Summary: 64 yo male presents with flu-like symptoms. He tells me that over the last 3 days he has had a dry cough, fatigue, and body aches. Reports feeling feverish the first 2 days, but feels better today. He did get a flu shot this year. He has been taking OTC tylenol with good relief. Denies sinus symptoms, sore throat , SOB, chest pain, rash, abdominal pain, n/v/d - History of Current Complaint Chief Complaint: UCRespiratory Stated Complaint: COUGHING Time Seen by Provider: 12/04/19 16:46 Hx Obtained From: Patient Onset/Duration: Sudden Onset Severity: Mild Pain Intensity: 2 Pain Scale Used: 0-10 Numeric - Allergies/Home Medications Allergies/Adverse Reactions: Allergies Allergy/AdvReac Type Severity Reaction Status Date / Time Environmental Allergies Allergy Congestion Uncoded 12/04/19 16:38 Home Medications: Home Medications glipiZIDE [Glipizide ER] 5 mg PO DAILY 12/04/19 [History Confirmed 12/04/19] PMH/Surg Hx/FS Hx/Imm Hx Endocrine History: Diabetes, Dyslipidemia Respiratory History: Asthma GI/ History: Gastroesophageal Reflux Psychological History: Anxiety, Depression Other History Of: Negative For: HIV, Hepatitis B, Hepatitis C, Anticoagulant Therapy - Surgical History Surgical History: Yes Surgery Procedure, Year, and Place: LEFT WRIST ORIF AND THEN PLATE PLACEMENT, 2001. HERNIA REPAIR, 5 yrs ago. [place], 2013 - Family History Known Family History: Positive: None Negative: Diabetes, Seizure Disorder, Other - NO JOINT LAXITY - Social History Lives: With Family Alcohol Use: None Substance Use Type: None Smoking Status (MU): Former Smoker Amount Used/How Often: pack a day for 20 yrs When Did the Patient Quit Smoking/Using Tobacco: 25 yrs ago - Immunization History Most Recent Influenza Vaccination: 2017 Most Recent Pneumonia Vaccination: 2017 Review of Systems All Other Systems Reviewed And Are Negative: No Constitutional: Positive: Fatigue, Other - Body aches Skin: Positive: Negative Eyes: Positive: Negative ENT: Positive: Negative Respiratory: Positive: Cough Cardiovascular: Positive: Negative Gastrointestinal: Positive: Negative Neurological: Positive: Negative Psychological: Positive: Negative Physical Exam - Summary Physical Exam Summary: GENERAL: NAD. WDWN. No pain distress. SKIN: No rashes, sores, lesions, or open wounds. HEENT: Head: AT/NC Eyes: EOM intact. Conjunctiva clear without inflammation or discharge. Ears: Hearing grossly normal. TMs intact, no bulging, erythema, or edema. Nose: Nasal mucosa pink and moist. NTTP maxillary and frontal sinus. Throat: Posterior oropharynx without exudates, erythema, or tonsillar enlargement. Uvula midline. NECK: Supple. Nontender. No lymphadenopathy. CHEST: CTAB. No r/r/w. No accessory muscle use. Breathing comfortably and in no distress. CV: RRR. Pulses intact. Cap refill <2seconds NEURO: Alert. PSYCH: Age appropriate behavior. Triage Information Reviewed: Yes Vital Signs: Initial Vital Signs Temp 99 F 12/04/19 16:34 Pulse 99 12/04/19 16:34 Resp 16 12/04/19 16:34 BP 132/81 12/04/19 16:34 Pulse Ox 95 12/04/19 16:34 Laboratory Tests 12/04/19 16:59 Influenza B (Rapid) Positive A Vital Signs Reviewed: Yes Throat Pain/Nasal Course/Dx - Course Course Of Treatment: POC flu positive. Given comorbidities will treat with tamiflu at this time. - Differential Dx/Diagnosis Provider Diagnosis: Influenza Discharge ED - Sign-Out/Discharge Documenting (check all that apply): Patient Departure All imaging exams completed and their final reports reviewed: No Studies - Discharge Plan Condition: Stable Disposition: HOME Prescriptions: Benzonatate CAP* [Tessalon 100 MG CAP*] 100 mg PO TID PRN #21 cap PRN Reason: Cough Oseltamivir CAP* [Tamiflu CAP*] 75 mg PO BID #10 cap Patient Education Materials: Influenza (ED) Referrals: Reina Bermudez MD [Primary Care Provider] - Additional Instructions: Most people with the flu recover within one to two weeks without treatment. However, serious complications of the flu can occur. Go to the ER immediately if you: -- You feel short of breath or have trouble breathing -- You have pain or pressure in your chest or stomach -- You have signs of being dehydrated, such as dizziness when standing or not passing urine -- You feel confused -- You cannot stop vomiting or you cannot drink enough fluids There are several groups of people who are at increased risk for flu complications. These include women, young children (<5 years of age and especially <2 years of age), people older than 65 years of age, and people with certain diseases such as chronic lung disease (such as asthma), heart disease, diabetes, immunosuppressing conditions (such as HIV infection or transplantation), and some other diseases. Treat symptoms Treating the symptoms of influenza can help you to feel better but will not make the flu go away faster. -- Rest until the flu is fully resolved, especially if the illness has been severe. -- Fluids Drink enough fluids so that you do not become dehydrated. One way to judge clerk if you are drinking enough is to look at the color of your urine. Normally, urine should be light yellow to nearly colorless. If you are drinking enough, you should pass urine every three to five hours. -- Acetaminophen (sample brand name: Tylenol) can relieve fever, headache, and muscle aches. Aspirin and medicines that include aspirin (eg, bismuth subsalicylate [sample brand name: Pepto-Bismol]) are not recommended for children under 18 because aspirin can lead to a serious disease called Robert syndrome. -- Cough medicines are not usually helpful; cough usually resolves without treatment. We do not recommend cough or cold medicine for children under age 6 years. - Billing Disposition and Condition Condition: STABLE Disposition: Home
[2019-12-04 17:03] LABS: Influenza B Molecular POSITIVE (Negative)
== END 2019-12-04 17:15 | disposition home or self-care (01) ==
LOC: UCEAST 16:11
DX: J11.1 Influenza due to unidentified influenza virus with other respiratory manifestations (principal); E11.9 Type 2 diabetes mellitus without complications; J45.909 Unspecified asthma, uncomplicated; Z79.84 Long term (current) use of oral hypoglycemic drugs; Z87.891 Personal history of nicotine dependence; Z91.09 Other allergy status, other than to drugs and biological substances
CPT/HCPCS: 99212; G0463